=== PATIENT | male | born 1955 | race Caucasian/White ===

== ENCOUNTER 2023-10-22 08:40 | Inpatient (IN) ==
--- NOTE | 2023-09-19 08:46 | PAT Medication Instructions ---
Medication Instructions Date of Service September 19, 2023 Home Medications Fish Oil Capsule 1 cap PO QAM allopurinol 100 mg tablet 100 mg PO BID cholecalciferol (vitamin D3) 125 mcg (5,000 unit) tablet (Vitamin D3) 125 mcg PO QAM gabapentin 300 mg capsule 300 mg PO HS hydrochlorothiazide 25 mg tablet 25 mg PO QAM ibuprofen 600 mg tablet 600 mg PO QID PRN Pain lidocaine 4 % topical patch 1 patch topical BID PRN Pain losartan 25 mg tablet 25 mg PO QAM rosuvastatin 5 mg tablet (Crestor) 5 mg PO Q2D tramadol 50 mg tablet 50 mg PO BID PRN Pain Continue as directed lidocaine 4 % topical patch 1 patch topical BID PRN Pain (if needed, avoid placement near surgical site prior to surgery) rosuvastatin 5 mg tablet (Crestor) 5 mg PO Q2D ASK your surgeon for instructions ibuprofen 600 mg tablet 600 mg PO QID PRN Pain STOP taking 2 weeks before surgery (or as soon as possible if surgery is within 2 weeks) Fish Oil Capsule 1 cap PO QAM DO NOT take the morning of surgery cholecalciferol (vitamin D3) 125 mcg (5,000 unit) tablet (Vitamin D3) 125 mcg PO QAM hydrochlorothiazide 25 mg tablet 25 mg PO QAM losartan 25 mg tablet 25 mg PO QAM Take morning of surgery With a small sip of water, OTHERWISE NOTHING TO EAT OR DRINK AFTER MIDNIGHT: allopurinol 100 mg tablet 100 mg PO BID tramadol 50 mg tablet 50 mg PO BID PRN Pain (if needed) Take evening before surgery allopurinol 100 mg tablet 100 mg PO BID gabapentin 300 mg capsule 300 mg PO HS tramadol 50 mg tablet 50 mg PO BID PRN Pain (if needed) Other Notes If you have any questions please call us at [phone] or [phone] or [phone] or [phone]
--- NOTE | 2023-09-26 12:56 | Anesthesiology Consultation ---
Date of Service September 26, 2023 Assessment & Plan (1) Encounter for pre-operative examination: - upcoming PCP Dr. Lilian Isidro appointment 10/02/23 and upcoming cardiology pre-operative evaluation with Dr. Carroll's practice in [place] 10/09. PAT testing to be faxed to PCP and cardiology by patient request for continuity of care. Chart Review Chart Review: Pending: Refer to Additional Notes / Consult section and Patient seen in Pre Admission Testing Teaching & Discussion Pre-Anesthesia Teaching/Discussion Notes: Instructed NPO after midnight before surgery, except medications with 15 cc of water. Medication instructions provided according to the PAT guidelines. History Surgery Operation Date: 10/22/23 10:05 Proposed Procedures p L4-S1 Decompression Fusion Spinal Cord Monitoring - Quinn Porter DO Height/Weight Height: 5 ft 10 in Weight: 112.6 kg Allergies Allergy/AdvReac Type Severity Reaction Status Date / Time No Known Allergies Allergy Verified 09/18/23 16:16 Medications Home Medications Medication Instructions Recorded Confirmed Last Taken Fish Oil Capsule 1 cap PO QAM 09/18/23 09/18/23 Unknown allopurinol 100 mg tablet 100 mg PO BID 09/18/23 09/18/23 Unknown cholecalciferol (vitamin D3) 125 125 mcg PO QAM 09/18/23 09/18/23 Unknown mcg (5,000 unit) tablet (Vitamin D3) gabapentin 300 mg capsule 300 mg PO HS 09/18/23 09/18/23 Unknown hydrochlorothiazide 25 mg tablet 25 mg PO QAM 09/18/23 09/18/23 Unknown ibuprofen 600 mg tablet 600 mg PO QID PRN Pain 09/18/23 09/18/23 Unknown lidocaine 4 % topical patch 1 patch topical BID PRN Pain 09/18/23 09/18/23 Unknown losartan 25 mg tablet 25 mg PO QAM 09/18/23 09/18/23 Unknown rosuvastatin 5 mg tablet (Crestor) 5 mg PO Q2D 09/18/23 09/18/23 Unknown tramadol 50 mg tablet 50 mg PO BID PRN Pain 09/18/23 09/18/23 Unknown Past Medical History Medical History GERD (gastroesophageal reflux disease) infrequent, stable per pt Hx of gout last episode several yrs ago Degenerative disc disease Spinal stenosis Hypertension controlled, stable per pt; white coat HTN; followed cardiology in [place]>Dr. Carroll Patient denies h/o stroke, seizures, heart attack, heart failure, DM, blood clots/DVTs or blood transfusions. Exercise / Class Metabolic Activity II 4-5 Yardwork/Stairs/Walk up hill (denies chest discomfort or shortness of breath with 1 FOS) Past Family History Family History Other No family history of adverse response to anesthesia Past Surgical History Surgical History History of bunionectomy of both great toes H/O arthroscopy of right knee Hx of vasectomy History of colonoscopy H/O inguinal hernia repair History of tonsillectomy Past Anesthesia History No Hx of Anesthesia Complications and No Family Hx of Anesthesia Complications History of PONV No Hx of PONV and No Hx of Motion Sickness Social History Smoking Status: Never smoker Do You Dip or Chew Tobacco: Yes (-advised) Hx Alcohol Use: Yes Alcohol type: beer alcohol intake frequency: a few times a week substance use type: does not use Review of Systems Patient denies chest discomfort, shortness of breath, dyspnea on exertion, snoring, witnessed apneas, fever, chills, cough, wheezing, or palpitations. Physical Exam Vital Signs Vitals BP 171/94 left arm automatic; repeat BP left arm manual after 10-15 minutes of patient resting with feet flat on floor 160/86 (pt notes that his home reading this morning was 130/80s; notes stress being in clinical setting and drank 2 cups of coffee today) He was advised to check BP at home and follow cardiology guidelines for home readings. P 72 TEMP 97.8 SP02 96% on RA RESP 18 Physical Patient non-diaphoretic, resting comfortably in chair in no acute distress, alert and oriented, responding appropriately throughout visit Full cervical extension range of motion without pain TMD 3.5 finger breadths Mallampati Score 2 Dentition: one implant-lower left back, denies chipped or loose teeth, caps/crowns, or bridges Lungs: normal respiratory effort. Good air movement, clear throughout to auscultation, no adventitious breath sounds Cardiac: regular rate and rhythm, no murmurs noted Carotid arteries: negative bruit bilat Lab Results Anesthesia Preop Results Results Anesthesia Widget: WBC 13.18 K/ul (4.8-10.8) H 09/26/23 Hgb 14.8 g/dl (14.0-18.0) 09/26/23 Hct 42.1 % (42.0-52.0) 09/26/23 Plt 277 K/uL (130-400) 09/26/23 Na 137 mmol/L (136-145) 09/26/23 K 4.0 mmol/L (3.5-5.1) 09/26/23 Cl 105 mmol/L (98-107) 09/26/23 CO2 22 mmol/L (21-32) 09/26/23 BUN 31 mg/dl (6-23) H 09/26/23 Creat 0.85 mg/dl (0.6-1.4) 09/26/23 Glucose Level 109 mg/dl (70-99(Fasting)) H 09/26/23 PT 10.7 Seconds (9.0-12.0) 09/26/23 PTT 25 Seconds (21-31) 09/26/23 INR 1.0 (0.9-1.1) 09/26/23 Urine Color Yellow 09/26/23 Urine Appearance Clear (Clear) 09/26/23 Urine pH 6.0 (4.5-7.5) 09/26/23 Urine Specific [place] 1.014 (1.000-1.030) 09/26/23 Urine Protein Negative (Negative) 09/26/23 Urine Glucose (UA) Negative (Negative) 09/26/23 Urine Ketones Negative (Negative) 09/26/23 Urine Blood Negative (Negative) 09/26/23 Urine Nitrite Negative (Negative) 09/26/23 Urine Bilirubin Negative (Negative) 09/26/23 Urine Urobilinogen Negative (Negative) 09/26/23 Urine Leukocyte Esterase Negative (Negative) 09/26/23 Blood Type A Negative 09/26/23 Antibody Screen NEGATIVE 09/26/23 Testing Laboratory Results Surgeon's office notified of elevated WBC with left shift. Electrocardiogram Date: 09/26/23 NSR, rate 67 bpm Nonspecific intraventricular conduction block Minimal voltage criteria for LVH, may be normal variant Chest X-Ray Date: 09/26/23 No acute cardiopulmonary findings.
[~2023-10-22 08:40] MED LIST: ACETAMINOPHEN 500 MG TAB PO SCH; CeleBREX 200 MG CAP PO SCH; DEXAMETHASONE SOD INJ 4 MG/ML VIAL ONE; GABAPENTIN 300 MG CAP PO SCH; LIDOCAINE 2% 2 ML VIAL/AMP(20MG/ML) INFIL ONE; LR 15ML/HR IV SCH; LR 60ML/HR IV SCH; MIDAZOLAM HCL 1 MG/ML 2ML VIAL ONE; ONDANSETRON INJ 2 MG/ML 2 ML VIAL ONE; PROPOFOL IV EMULSION 10 MG/ML 20 ML VIAL IV ONE; ROCURONIUM BROMIDE 10 MG/ML 5 ML VIAL IV ONE; SUGAMMADEX SODIUM 200 MG/2 ML VIAL IV ONE; ceFAZolin 2000MG 2,000 MG/15 ML SYR IV SCH; fentaNYL citrate PF 100 MCG/2 ML VIAL ONE
[2023-10-22] MEDS ORDERED: ONDANSETRON INJ 2 MG/ML 2 ML VIAL IV PRN ×2 (09:54→15:27)
[2023-10-22] MEDS ORDERED: ePHEDrine sulfate 50 MG/ML AMP IV PRN (09:54)
[2023-10-22] MEDS ORDERED: NALOXONE HCL 0.4 MG/1 ML VIAL/CARP IV PRN ×2 (09:54→15:27)
[2023-10-22] MEDS ORDERED: LABETALOL HCL IV 5 MG/ML 20ML IV PRN (09:54)
[2023-10-22] MEDS ORDERED: PROMETHAZINE HCL 12.5 MG in SODIUM CHLORIDE 0.9% 50 ML IV PRN ×2 (09:54→15:27)
[2023-10-22] MEDS ORDERED: FLUMAZENIL 0.1 MG/1 ML 10 ML VIAL IV PRN (09:54)
[2023-10-22] MEDS ORDERED: ATROPINE SULFATE 0.1 MG/ML 10ML SYR IV PRN (09:54)
--- NOTE | 2023-10-22 10:27 | History & Physical Bridge Note ---
Date of Service October 22, 2023 History & Physical Bridge Note I have examined the patient, reviewed the History & Physical and in the interval since the performance of the History & Physical I have noted the following changes of clinical significance: no changes noted
--- NOTE | 2023-10-22 10:28 | History & Physical Report ---
Date of Service October 22, 2023 Assessment & Plan (1) Neurogenic claudication due to lumbar spinal stenosis: Plan: L4-S1 decompression and fusion possible L2-L4 History of Present Illness Chief Complaint: Back and bilateral leg pain Primary Care Provider: Lilian Isidro MD This is a 60-year-old male who presents with chronic persistent back and leg pain after failing course of nonoperative care is here for surgical invention. Allergies Allergy/AdvReac Type Severity Reaction Status Date / Time No Known Allergies Allergy Verified 10/22/23 09:21 Home Medications Medication Instructions Recorded Confirmed Type Fish Oil Capsule 1 cap PO QAM 09/18/23 10/22/23 History allopurinol 100 mg tablet 100 mg PO BID 09/18/23 10/22/23 History cholecalciferol (vitamin D3) 125 125 mcg PO QAM 09/18/23 10/22/23 History mcg (5,000 unit) tablet (Vitamin D3) gabapentin 300 mg capsule 300 mg PO HS 09/18/23 10/22/23 History hydrochlorothiazide 25 mg tablet 25 mg PO QAM 09/18/23 10/22/23 History ibuprofen 600 mg tablet 600 mg PO QID PRN Pain 09/18/23 10/22/23 History lidocaine 4 % topical patch 1 patch topical BID PRN Pain 09/18/23 10/22/23 Hi story losartan 25 mg tablet 25 mg PO QAM 09/18/23 10/22/23 History rosuvastatin 5 mg tablet (Crestor) 5 mg PO Q2D 09/18/23 10/22/23 History tramadol 50 mg tablet 50 mg PO BID PRN Pain 09/18/23 10/22/23 History Past Med/Surg History Medical History GERD (gastroesophageal reflux disease) infrequent, stable per pt Hx of gout last episode several yrs ago Degenerative disc disease Spinal stenosis Hypertension controlled, stable per pt; white coat HTN; followed cardiology in [place]>Dr. Carroll Surgical History History of bunionectomy of both great toes H/O arthroscopy of right knee Hx of vasectomy History of colonoscopy H/O inguinal hernia repair History of tonsillectomy Family History Other No family history of adverse response to anesthesia Social History Smoking Status: Never smoker Tobacco Type: Smokeless Tobacco (Dip or Chew) Second Hand Exposure: No; Do You Dip or Chew Tobacco: Yes (-advised); Hx Alcohol Use: Yes Alcohol type: beer Preferred Language: Chinese Rolloff Driver Required: No Beliefs That Will Affect Care: None Current Living Situation: Spouse Feels Safe at Home: Yes Safety Concerns: Feels Safe At This Time Assistive Devices: None Physical Exam Physical Exam: Patient is alert and oriented Heart regular rhythm Lungs clear Results & Data Results & Data Vital Signs (Past 12 Hours) Vital Signs Temp Pulse Resp BP Pulse Ox O2 Del Method 10/22/23 09:25 36.6 C 85 95 H 140/107 H 95 Room Air
[2023-10-22] MEDS ORDERED: BUPIVACAINE/EPINEPHRINE 0.25% 1:200,000 30 ML VIAL ONE (10:52)
[2023-10-22] MEDS ORDERED: ceFAZolin 330 MG/ML 1 GM VIAL ONE (10:52)
[2023-10-22] MEDS ORDERED: FLOSEAL HEMOSTATIC MATRIX 10ML TOP ONE (11:35)
[2023-10-22] MEDS ORDERED: PHENYLEPHRINE 100MCG/ML 10ML SYR IV ONE (12:22)
[2023-10-22] MEDS ORDERED: ROCURONIUM BROMIDE 10 MG/ML 5 ML VIAL IV ONE (12:38)
[2023-10-22] MEDS ORDERED: fentaNYL citrate PF 100 MCG/2 ML VIAL ONE (12:54)
--- NOTE | 2023-10-22 13:37 | Operative Report ---
Post Operative Report Pre & Post Diagnosis Operation Date: 10/22/23 10:25 Pre-Op Diagnosis: Neurogenic claudication due to lumbar spinal stenosis Spondylolisthesis L5-S1 Epidural lipomatosis Post-Op Diagnosis: Same I identified the patient and participated in the time-out.: Yes Procedure Operation Date: 10/22/23 10:25 Actual Procedures #1 lumbar decompression bilaterally facetectomies and foraminotomies L2-3, L3- L4, L4-5 and L5-S1. #2 posterior spinal fusion L2-S1. #3 placement of posterior segmental instrumentation L2-S1. #4 interbody fusion L4-5 L5-S1. #5 placement Spira 13 x 26 mm at L4-5 and 14 x 26 mm x 2 at L5-S1. #6 placement locally harvested morselized autograft and posterior gutters. #7 placement of Morpheus bone graft in the interbody space and infuse collagen sponge combined with Koros in the posterior lateral gutters. Surgeon Quinn Porter, DO Flute Polisher Jody Bolanos Estimated Blood Loss 800 Findings See Below The patient is 5 foot 10 weighing over 107 kg with a BMI in excess of 34. Patient's body habitus did contribute to significant technical difficulty required deeper retractors longer instruments were to perform his procedure. This at least 50% increased operative time. Specimens None Indications This is a 68-year-old male who presents problems diagnosis of failed course of nonoperative care is here for surgical invention. Description of Procedure Patient was met with identified informed consent obtained. Patient was then taken to the operative suite underwent patient placed in a prone position on the [place] table top [place] frame. All bony prominences well-padded eyes inspected to ensure no external pressure placed upon the. This point lumbar spine was prepped and draped in a sterile fashion. Sharp dissection with the assistance of Bovie cautery performed down to and exposing the lamina transverse processes of L2-L3 L4-5 and the sacral ala bilaterally. From caudal cephalad fashion complete laminectomy of L5 L4 L3 and L2 was performed including bilaterally facetectomies and foraminotomies addressing severe spinal stenosis and epidural lipomatosis. Pedicle screws then placed L2 L3-L4-L5 and S1 levels bilaterally with assistance of fluoroscopy and process cole placed. By way the transforam inal approach on the right discectomy of L5-S1 was performed endplates guided to subcortically bone and a 14 x 26 mm Spira cage with I factor tapped in position. Then proceeded to the left side L5-S1 transforaminal space completed the discectomy curetted the endplates to subcortical bleeding bone and placed a second 14 x 26 mm Spira cage with I factor into position. Then proceeded to L for L5 and by way of transforaminal approach on the right a complete discectomy performed endplates guided to subcortical mean bone and a 13 x 26 mm Spira cage with I factor tapped in position. The rods then locked in final position bilaterally. The transverse processes of L 2 L3-L4-L5 and the sacral ala burred to subcortical bleeding bone. Infuse collagen sponge combined with Koros and local autograft placed in the posterior gutters. 15 round SVEN inserted. The incision was then closed with 1 Vicryl the fascia 2-0 Vicryl subcutaneously and 4 Monocryl for final skin closure. Steri-Strip sterile dressing placed. Patient awakened taken to PACU stable condition. Please note spinal cord monitoring was utilized at the procedure no changes noted. Lastly Jody Bolanos was present at the entire surgeon while the patient positioning complex portion of the surgery and final skin closure. I attest to the content of the Intraoperative Record and any orders documented therein. Any exceptions are noted below.
--- NOTE | 2023-10-22 14:01 | Fluoroscopy Report ---
FL lumbar spine 2-3V CLINICAL HISTORY: L4-S1 DECOMP/FUSION COMPARISON STUDY: None FLUOROSCOPY TIME: 32.6 seconds FLUOROSCOPY IMAGES: 4 EXPOSURE DOSE: 27.23 mGy FINDINGS: Posterior interbody rods and screw fusion hardware is noted at what is labeled the L2-S1 le vels with L4-L5 and L5-S1 discectomy. The hardware appears intact. A surgical sponge projects over th e L1 vertebral body on the lateral view. IMPRESSION: Fluoroscopic assistance as above. ACT 112: Negative or not required by law. Electronically signed by: Austin Crane M.D. 10/22/2023 1:59 PM
[2023-10-22] MEDS: fentaNYL citrate PF 100 MCG/2 ML VIAL IV PRN ×4 (14:05→14:20)
[2023-10-22] MEDS: HYDROmorphone INJ 1 MG/ML SYRINGE IV PRN ×6 (14:24→14:49)
--- NOTE | 2023-10-22 15:13 | Anesthesiology Progress Note ---
Date of Service October 22, 2023 Anesthesia Post Procedure Vital Signs Vital Signs: Temp Pulse Resp BP Pulse Ox O2 Del Method O2 Flow Rate 10/22/23 15:00 100 H 16 116/84 95 Nasal Cannula 3 10/22/23 14:50 99 H 14 128/82 97 Nasal Cannula 3 10/22/23 14:40 98 H 12 115/82 96 Nasal Cannula 3 10/22/23 14:30 37.1 C 101 H 14 112/95 95 Nasal Cannula 3 10/22/23 14:20 108 H 14 129/72 96 Nasal Cannula 3 10/22/23 14:10 105 H 10 L 124/95 96 Oxymask 4 10/22/23 14:00 110 H 14 111/96 97 Oxymask 6 10/22/23 13:52 36.2 C L 94 H 16 112/86 92 Oxymask 8 10/22/23 09:25 36.6 C 85 95 H 140/107 H 95 Room Air Pain Intensity Lower Back: Pain Intensity: 4 Transfer of Care Handoff Completed per policy Notes Mental Status: alert / awake / arousable Patient Amnestic to Procedure: Yes Nausea / Vomiting: adequately controlled Pain: adequately controlled Airway Patency, RR, SpO2: stable & adequate BP & HR: stable & adequate Hydration State: stable & adequate Anesthetic Complications: no major complications apparent
[2023-10-22] MEDS ORDERED: oxyCODONE HCL IR 5 MG TAB (IMMEDIATE RELEASE) PO PRN (15:27)
[2023-10-22] MEDS ORDERED: METOCLOPRAMIDE HCL INJ 5 MG/ML 2 ML VIAL IV PRN (15:27)
[2023-10-22] MEDS ORDERED: HYDROmorphone INJ 0.5 MG/0.5 ML SYR IV PRN (15:27)
[2023-10-22] MEDS ORDERED: bisacodyL 10 MG SUPP PR PRN (15:27)
[2023-10-22] MEDS ORDERED: MAGNESIUM HYDROXIDE SUSP 30 ML UDC PO PRN (15:27)
[2023-10-22] MEDS ORDERED: HYDROmorphone INJ 1 MG/ML SYRINGE IV PRN (15:27)
[2023-10-22] MEDS ORDERED: DO NOT ADMINISTER PNEUMOCOCCAL VACCINE PRN (15:27)
[2023-10-22] MEDS ORDERED: ACETAMINOPHEN 1,000 MG/100 ML VIAL IV PRN (15:27)
[2023-10-22] MEDS ORDERED: diphenhydrAMINE Capsule 25 MG CAP PO PRN (15:27)
[2023-10-22] MEDS ORDERED: LORazepam 0.5 MG in SYRINGE 0.25 ML IV PRN (15:27)
[2023-10-22] MEDS ORDERED: ACETAMINOPHEN 500 MG TAB PO PRN (15:27)
[2023-10-22] MEDS ORDERED: LORazepam 0.5 MG TAB PO PRN (15:27)
[2023-10-22] MEDS ORDERED: FAMOTIDINE 20 MG TAB PO PRN (15:27)
[2023-10-22] MEDS ORDERED: ONDANSETRON 4 MG OD TAB PO PRN (15:27)
[2023-10-22] MEDS ORDERED: ALUMINUM/MAGNESIUM SUSP 30 ML UDC PO PRN (15:27)
[2023-10-22] MEDS ORDERED: DO NOT ADMINISTER FLU VACCINE PRN (15:27)
[2023-10-22] MEDS ORDERED: hydrOXYzine HCl 25 MG TAB PO PRN (15:27)
[2023-10-22] MEDS ORDERED: SOD PHOSPHATE/SOD BIPHOSPHATE ENEMA 132 ML BTL PR PRN (15:27)
[2023-10-22] MEDS: LACTATED RINGER'S 1,000 ML IV SCH ×2 (15:56→23:33)
[2023-10-22] MEDS: ROSUVASTATIN CALCIUM 5 MG TAB PO SCH (17:13)
[2023-10-22] MEDS: traMADol HCL 50 MG TABLET PO PRN (18:24)
--- NOTE | 2023-10-22 18:34 | Consultation ---
Date of Consultation October 22, 2023 Assessment & Plan (1) Neurogenic claudication due to lumbar spinal stenosis: (2) S/P spinal surgery: Post op day# 0 S/P L2-S1 decompression and fusion by Dr Porter [id number] Pain management per ortho Wound management per ortho PT/OT as appropriate DVT prophylaxis per ortho Incentive spirometry Monitor H&H for acute blood loss anemia; pre-op Hgb: 14.8 (3) Hypertension: Stable Continue losartan, HCTZ with holding parameters (4) Dyslipidemia: Continue rosuvastatin (5) Hx of gout: No current flare Continue allopurinol DVT Prophylaxis SCDs per ortho Disposition per primary service Follows with Dr Lilian Isidro for routine care Pt was seen and care coordinated with Dr Aguirre. See addendum Thank you for this consultation. We will follow the patient with you during their hospital stay. You can reach a [facility]05 via [employer] Supervising Physician Co-Signing Physician Notes I have seen and examined the patient and have discussed the case with the provider above. I agree with the assessment and plan as stated. 68-year-old man status post back surgery today. Still reports some low back pain but this is expected. SVEN drain in place. Cardiopulmonary exam is within normal limits. Patient is morbidly obese. Pain is manageable. No lower extremity symptoms. Lowry catheter is in place draining clear urine. Medication reconciliation performed, continue meds as noted above. Repeat CBC in a.m. given ESBL of 800 cc today. DO Timothy History of Present Illness Requesting Physician: Dr Porter Reason for Consultation: Post op medical management Attending Physician: Quinn Porter DO History of Present Illness Patient is 68 year old male with PMH HTN, dyslipidemia, gout, OA seen in medical consultation s/p L2-S1 decompression and fusion today by Dr Porter. Post op patient reports some low back pain. He is sitting up in bedside chair and states pain is minimal at rest currently. Last BM this morning. Has Lowry catheter in place. Ate sandwich and denies nausea or vomiting. Denies fever/chills, monika phoresis, AGUILAR, dizziness, vision changes, neck pain, CP, SOB, palpitations, cough, sore throat, otalgia, rhinorrhea, abdominal pain, paresthesias, extremity weakness, extremity edema, rashes, urinary symptoms. Allergies Allergy/AdvReac Type Severity Reaction Status Date / Time No Known Allergies Allergy Verified 10/22/23 09:21 Home Medications Medication Instructions Recorded Confirmed Type Fish Oil Capsule 1 cap PO QAM 09/18/23 10/22/23 History allopurinol 100 mg tablet 100 mg PO BID 09/18/23 10/22/23 History cholecalciferol (vitamin D3) 125 125 mcg PO QAM 09/18/23 10/22/23 History mcg (5,000 unit) tablet (Vitamin D3) gabapentin 300 mg capsule 300 mg PO HS 09/18/23 10/22/23 History hydrochlorothiazide 25 mg tablet 25 mg PO QAM 09/18/23 10/22/23 History ibuprofen 600 mg tablet 600 mg PO QID PRN Pain 09/18/23 10/22/23 History lidocaine 4 % topical patch 1 patch topical BID PRN Pain 09/18/23 10/22/23 History losartan 25 mg tablet 25 mg PO QAM 09/18/23 10/22/23 History rosuvastatin 5 mg tablet (Crestor) 5 mg PO Q2D 09/18/23 10/22/23 History tramadol 50 mg tablet 50 mg PO BID PRN Pain 09/18/23 10/22/23 History Patient History Medical History (Updated 10/22/23 @ 18:40 by Barbara Ceballos PA-C) Dyslipidemia GERD (gastroesophageal reflux disease) infrequent, stable per pt Hx of gout last episode several yrs ago Degenerative disc disease Spinal stenosis Hypertension controlled, stable per pt; white coat HTN; followed cardiology in [place]>Dr. Carroll Surgical History (Updated 10/22/23 @ 18:40 by Barbara Ceballos PA-C) History of bunionectomy of both great toes H/O arthroscopy of right knee Hx of vasectomy History of colonoscopy H/O inguinal hernia repair History of tonsillectomy Family History Other No family history of adverse response to anesthesia Social History Smoking Status: Never smoker Tobacco Type: Smokeless Tobacco (Dip or Chew) Second Hand Exposure: No; Do You Dip or Chew Tobacco: Yes (-advised); Hx Alcohol Use: Yes Alcohol type: beer Preferred Language: Palauan Basic Acoustic Analyst Required: No Beliefs That Will Affect Care: None Current Living Situation: Spouse Feels Safe at Home: Yes Safety Concerns: Feels Safe At This Time Assistive Devices: None Review of Systems Review of Systems: All systems reviewed & are unremarkable except as noted in HPI & below Physical Exam Physical Exam: General: no acute distress, sitting at bedside chair, obese Head: normocephalic, atraumatic Eyes: conjunctiva non-injected, anicteric ENT: normal inspection external ears, nose, mucous membranes moist Neck: supple, trachea midline Lungs: clear, no respiratory distress, no wheezing/rhonchi/rales CV: RRR, no murmur, no pretibial edema Abd: protuberant, normal BS, soft, non-tender Back: surgical dressing in place and dry. +SVEN drain with serosanguineous drainage Ext: no cyanosis, no calf tenderness; bilateral pedal pushes and pulls intact, sensation to light touch intact Neuro: A&O x 3, no focal deficits noted, flat affect Skin: warm, dry Results & Data Vital Signs (Past 12 Hours) Vital Signs Temp Pulse Pulse Resp BP Pulse Ox O2 Del Method 10/22/23 18:15 36.6 C 86 18 116/82 94 Room Air 10/22/23 17:05 36.3 C L 98 H 18 112/73 96 Room Air 10/22/23 16:15 36.7 C 88 16 120/78 95 Room Air 10/22/23 16:06 Nasal Cannula 10/22/23 15:45 36.8 C 92 H 18 119/83 95 Nasal Cannula 10/22/23 15:15 36.6 C 97 H 16 118/83 94 Room Air 10/22/23 15:00 100 H 16 116/84 95 Nasal Cannula 10/22/23 14:50 99 H 14 128/82 97 Nasal Cannula 10/22/23 14:40 98 H 12 115/82 96 Nasal Cannula 10/22/23 14:30 37.1 C 101 H 14 112/95 95 Nasal Cannula 10/22/23 14:20 108 H 14 129/72 96 Nasal Cannula 10/22/23 14:10 105 H 10 L 124/95 96 Oxymask 10/22/23 14:00 110 H 14 111/96 97 Oxymask 10/22/23 13:52 36.2 C L 94 H 16 112/86 92 Oxymask 10/22/23 09:25 36.6 C 85 95 H 140/107 H 95 Room Air O2 Flow Rate 10/22/23 18:15 10/22/23 17:05 10/22/23 16:15 10/22/23 16:06 2 10/22/23 15:45 2 10/22/23 15:15 10/22/23 15:00 3 10/22/23 14:50 3 10/22/23 14:40 3 10/22/23 14:30 3 10/22/23 14:20 3 10/22/23 14:10 4 10/22/23 14:00 6 10/22/23 13:52 8 10/22/23 09:25
[2023-10-22] MEDS: ceFAZolin 2000MG 2,000 MG/15 ML SYR IV SCH (19:45)
[2023-10-22] MEDS: allopurinoL 100 MG TAB PO SCH (21:06)
[2023-10-22] MEDS: GABAPENTIN 300 MG CAP PO SCH (21:07)
[2023-10-22] MEDS: DOCUSATE SODIUM/SENNA 50/8.6MG TAB PO SCH (21:09)
[2023-10-23] MEDS: ceFAZolin 2000MG 2,000 MG/15 ML SYR IV SCH (03:13)
[2023-10-23] MEDS: LACTATED RINGER'S 1,000 ML IV SCH (05:50)
[2023-10-23] MEDS: POLYETHYLENE (MIRALAX) 17 GM PACK PO SCH ×4 (05:53→23:43)
[2023-10-23] MEDS: traMADol HCL 50 MG TABLET PO PRN ×4 (06:05→20:48)
[2023-10-23 06:35] LABS: Basophils # (auto) 0.01 K/uL (0.00-0.20); Basophils % (auto) 0.1 %; Hematocrit (blood only) 32.9 % (42.0-52.0); Hemoglobin 11.4 g/dl (14.0-18.0); Immature Granulocytes # (auto) 0.07 K/uL (0.01-0.20); Immature Granulocytes % (auto) 0.6 %; Lymphocytes # (auto) 2.07 K/uL (1.20-3.40); Lymphocytes % (auto) 16.3 %; Mean Corpuscular Hgb Conc 34.7 g/dL (32.0-36.0); Mean Corpuscular Volume 89.4 fL (80.0-100.0); Mean Platelet Volume 9.5 fL (9.4-12.4); Monocytes # (auto) 0.85 K/uL (0.11-0.59); Monocytes % (auto) 6.7 %; Neutrophils # (auto) 9.67 K/uL (1.40-6.50); Neutrophils % (auto) 76.3 %; Platelet Count 270 K/uL (130-400); RDW Coefficient of Variation 13.1 % (11.5-14.5); RDW Standard Deviation 42.8 fL (36.4-46.3); Red Blood Count 3.68 M/uL (4.70-6.10); White Blood Count 12.67 K/ul (4.8-10.8)
[2023-10-23 06:50] LABS: BUN Creatinine Ratio 28.9 (10-20); Calcium 8.3 mg/dl (8.6-10.3); Creatinine Clr Calc Pharmacy 96.4 ml/min; Est GFR (African American) 101.4 ml/min; Est GFR (Non-African American) 87.5 ml/min; Potassium 4.1 mmol/L (3.5-5.1)
[2023-10-23] MEDS: hydroCHLOROthiazide 25 MG TAB PO SCH (07:48)
[2023-10-23] MEDS: LOSARTAN POTASSIUM 25 MG TAB PO SCH (07:48)
[2023-10-23] MEDS: dexAMETHasone 6 MG in SYRINGE 0 ML IV SCH (07:48)
[2023-10-23] MEDS: allopurinoL 100 MG TAB PO SCH ×2 (07:49→20:46)
--- NOTE | 2023-10-23 11:43 | Orthopedic Progress Note ---
Date of Service October 23, 2023 Assessment & Plan (1) Neurogenic claudication due to lumbar spinal stenosis: Plan: This time we will continue physical therapy monitor his SVEN operatively discharge home later this week. Admission and Anticipated Discharge Date Admission Date: October 22, 2023 Subjective Back pain controlled leg pain improved Physical Exam Physical Exam: Patient is comfortable in bed. He is tolerating physical therapy. Discussing the testing. Results & Data Vital Signs (Past 12 Hours) Vital Signs Temp Pulse Resp BP Pulse Ox O2 Del Method 10/23/23 08:00 Room Air 10/23/23 07:43 36.4 C L 83 18 137/79 95 Room Air 10/23/23 02:17 36.6 C 76 16 113/69 94 Room Air Queries Orthopedic Spine Obesity: Yes
--- NOTE | 2023-10-23 14:06 | Hospitalist Progress Note ---
Date of Service October 23, 2023 Assessment & Plan (1) Neurogenic claudication due to lumbar spinal stenosis: (2) S/P spinal surgery: Plan: Post op day# 1 S/P L2-S1 decompression and fusion by Dr Charlotte SPARKS#[id number] Pain management per ortho Wound management per ortho PT/OT as appropriate DVT prophylaxis per ortho Incentive spirometry Monitor H&H for acute blood loss anemia; pre-op Hgb: 14.8 Acute blood loss anemia: Likely perioperative blood loss complicated by dilutional anemia. Preoperative hemoglobin 14.8, postoperative 11.4. Will follow. Patient denies any headache or dizziness or chest pain or palpitation. No indication for transfusion for now. (3) Hypertension: Plan: Stable Continue losartan, HCTZ with holding parameters (4) Dyslipidemia: Plan: Continue rosuvastatin (5) Hx of gout: Plan: No current flare Continue allopurinol DVT Prophylaxis SCDs per ortho Disposition per primary service Follows with Dr Lilian Isidro for routine care Thank you for this consultation. We will follow the patient with you during their hospital stay. You can reach a member of the [facility] 12/05 via [employer] Admission and Anticipated Discharge Date Admission Date: October 22, 2023 Subjective Patient was seen and examined at bedside. Reports RLE radicular symptoms improved. Reports operative site pain under control. Reports eating okay, has not moved bowels yet, moving gas, no belly pain. Denies other review of symptoms. Physical Exam Physical Exam: General: no acute distress, lying in bed, on room air, NAD. Head: normocephalic, atraumatic Eyes: conjunctiva non-injected, anicteric ENT: normal inspection external ears, nose, mucous membranes moist Neck: supple, trachea midline Lungs: clear, no respiratory distress, no wheezing/rhonchi/rales CV: RRR, no murmur, no pretibial edema Abd: protuberant, normal BS, soft, non-tender Back: surgical dressing in place and dry. +SVEN drain with moderate serosanguineous drainage Ext: no cyanosis, no calf tenderness; bilateral pedal pushes and pulls intact, sensation to light touch intact Neuro: A&O x 3, no focal deficits noted, flat affect Skin: warm, dry Results & Data Results & Data Vital Signs (Past 12 Hours) Vital Signs Temp Pulse Resp BP Pulse Ox O2 Del Method 01/04/24 11:44 36.5 C 78 20 125/76 94 Room Air 10/23/23 08:00 Room Air 10/23/23 07:43 36.4 C L 83 18 137/79 95 Room Air 10/23/23 02:17 36.6 C 76 16 113/69 94 Room Air
[2023-10-23] MEDS: GABAPENTIN 300 MG CAP PO SCH (20:46)
[2023-10-23] MEDS: DOCUSATE SODIUM/SENNA 50/8.6MG TAB PO SCH (20:46)
[2023-10-24] MEDS: POLYETHYLENE (MIRALAX) 17 GM PACK PO SCH ×4 (05:45→23:18)
[2023-10-24] MEDS: traMADol HCL 50 MG TABLET PO PRN ×3 (05:45→21:12)
[2023-10-24 06:18] LABS: Hematocrit (blood only) 31.8 % (42.0-52.0); Hemoglobin 10.8 g/dl (14.0-18.0); Mean Corpuscular Hemoglobin 30.8 pg (25.0-34.0); Mean Corpuscular Volume 90.6 fL (80.0-100.0); Mean Platelet Volume 9.4 fL (9.4-12.4); Platelet Count 249 K/uL (130-400); RDW Coefficient of Variation 13.1 % (11.5-14.5); RDW Standard Deviation 42.8 fL (36.4-46.3); Red Blood Count 3.51 M/uL (4.70-6.10); White Blood Count 13.91 K/ul (4.8-10.8)
[2023-10-24] MEDS: dexAMETHasone 6 MG in SYRINGE 0 ML IV SCH (08:19)
[2023-10-24] MEDS: hydroCHLOROthiazide 25 MG TAB PO SCH (08:19)
[2023-10-24] MEDS: allopurinoL 100 MG TAB PO SCH ×2 (08:19→21:11)
[2023-10-24] MEDS: ROSUVASTATIN CALCIUM 5 MG TAB PO SCH (08:19)
[2023-10-24] MEDS: LOSARTAN POTASSIUM 25 MG TAB PO SCH (08:19)
--- NOTE | 2023-10-24 11:48 | Orthopedic Progress Note ---
Date of Service October 24, 2023 Assessment & Plan (1) Neurogenic claudication due to lumbar spinal stenosis: Plan: This time we will continue physical therapy monitor his SVEN output hopefully discharge home in the next few days. Admission and Anticipated Discharge Date Admission Date: October 22, 2023 Subjective Back pain controlled leg pain improved Physical Exam Physical Exam: Patient is in the chair at the bedside. Discussed when to testing. Results & Data Vital Signs (Past 12 Hours) Vital Signs Temp Pulse Resp BP Pulse Ox O2 Del Method 10/24/23 08:05 37.0 C 73 16 119/74 95 Room Air 10/24/23 08:00 Room Air Queries Orthopedic Spine Obesity: Yes
--- NOTE | 2023-10-24 13:03 | Hospitalist Progress Note ---
Date of Service October 24, 2023 Assessment & Plan (1) Neurogenic claudication due to lumbar spinal stenosis: (2) S/P spinal surgery: Plan: Post op day# 2 S/P L2-S1 decompression and fusion by Dr Charlotte SPARKS#[phone] Pain management per ortho Wound management per ortho PT/OT as appropriate DVT prophylaxis per ortho Incentive spirometry Monitor H&H for acute blood loss anemia; pre-op Hgb: 14.8 Acute blood loss anemia: Likely perioperative blood loss complicated by dilutional anemia. Preoperative hemoglobin 14.8, postoperative 11.4-->10.8. Will follow. Patient denies any headache or dizziness or chest pain or palpitation. No indication for transfusion for now. (3) Hypertension: Plan: Stable Continue losartan, HCTZ with holding parameters (4) Dyslipidemia: Plan: Continue rosuvastatin (5) Hx of gout: Plan: No current flare Continue allopurinol DVT Prophylaxis SCDs per ortho Disposition per primary service Follows with Dr Lilian Isidro for routine care Thank you for this consultation. We will follow the patient with you during their hospital stay. You can [facility] via [employer] Admission and Anticipated Discharge Date Admission Date: October 22, 2023 Subjective Patient was seen and examined at bedside. Reports RLE radicular symptoms improved. Reports operative site pain under control. Reports eating okay, has not moved bowels yet, moving gas, no belly pain. Denies other review of symptoms. Physical Exam Physical Exam: General: no acute distress, lying in bed, on room air, NAD. Head: normocephalic, atraumatic Eyes: conjunctiva non-injected, anicteric ENT: normal inspection external ears, nose, mucous membranes moist Neck: supple, trachea midline Lungs: clear, no respiratory distress, no wheezing/rhonchi/rales CV: RRR, no murmur, no pretibial edema Abd: protuberant, normal BS, soft, non-tender Back: surgical dressing in place and dry. +SVEN drain with moderate serosanguineous drainage Ext: no cyanosis, no calf tenderness; bilateral pedal pushes and pulls intact, sensation to light touch intact Neuro: A&O x 3, no focal deficits noted, flat affect Skin: warm, dry Results & Data Results & Data Vital Signs (Past 12 Hours) Vital Signs Temp Pulse Resp BP Pulse Ox O2 Del Method 10/24/23 08:05 37.0 C 73 16 119/74 95 Room Air 10/24/23 08:00 Room Air
[2023-10-24] MEDS: DOCUSATE SODIUM/SENNA 50/8.6MG TAB PO SCH (21:11)
[2023-10-24] MEDS: GABAPENTIN 300 MG CAP PO SCH (21:11)
[2023-10-25] MEDS: POLYETHYLENE (MIRALAX) 17 GM PACK PO SCH ×3 (05:01→16:47)
[2023-10-25 06:15] LABS: Hemoglobin 10.3 g/dl (14.0-18.0); Mean Corpuscular Hemoglobin 31.7 pg (25.0-34.0); Mean Corpuscular Hgb Conc 35.5 g/dL (32.0-36.0); Mean Corpuscular Volume 89.2 fL (80.0-100.0); Mean Platelet Volume 9.4 fL (9.4-12.4); Platelet Count 230 K/uL (130-400); RDW Standard Deviation 42.5 fL (36.4-46.3); Red Blood Count 3.25 M/uL (4.70-6.10); White Blood Count 12.88 K/ul (4.8-10.8)
--- NOTE | 2023-10-25 08:01 | Orthopedic Progress Note ---
Date of Service October 25, 2023 Assessment & Plan (1) Neurogenic claudication due to lumbar spinal stenosis: Plan: Jose is postoperative day 3 status post L2-S1 decompression and instrumented fusion. Will continue with pain control today. Work on aggressive bowel regimen. DVT prophylaxis in the form teds and SCDs. Maintain SVEN drain due to high output. Anticipate discharge home tomorrow. Admission and Anticipated Discharge Date Admission Date: October 22, 2023 Rebecca Morgan is postoperative day 3 status post L2-S1 decompression and instrumented fusion. He is doing well. SVEN drain output last shift was 80 cc. H&H this morning are 10.3 and 29.0 respectively. Yesterday in physical therapy ambulating a total of 500 feet. Passing flatus but no bowel movement yet. Review of Systems Review of Systems: All systems reviewed & are unremarkable except as noted in HPI & below Physical Exam Physical Exam: Alert and oriented x 3 No acute distress lumbar dressing is clean dry and intact with functioning SVEN drain Strength intact bilateral lower extremities Calf soft and nontender bilaterally Results & Data Vital Signs (Past 12 Hours) Vital Signs Temp Pulse Resp BP Pulse Ox O2 Del Method 10/24/23 20:33 36.6 C 76 20 134/75 97 Room Air Queries Orthopedic Spine Obesity: Yes
[2023-10-25] MEDS: LOSARTAN POTASSIUM 25 MG TAB PO SCH (08:55)
[2023-10-25] MEDS: hydroCHLOROthiazide 25 MG TAB PO SCH (08:55)
[2023-10-25] MEDS: allopurinoL 100 MG TAB PO SCH ×2 (08:55→20:20)
[2023-10-25] MEDS: dexAMETHasone 6 MG in SYRINGE 0 ML IV SCH (08:56)
[2023-10-25] MEDS: traMADol HCL 50 MG TABLET PO PRN ×3 (09:03→22:26)
--- NOTE | 2023-10-25 14:25 | Hospitalist Progress Note ---
Date of Service October 25, 2023 Assessment & Plan (1) Neurogenic claudication due to lumbar spinal stenosis: (2) S/P spinal surgery: Plan: S/P L2-S1 decompression and fusion by Dr Porter on October 22, 2023 EBL#[id number] Pain management per ortho Wound management per ortho PT/OT as appropriate DVT prophylaxis per ortho Incentive spirometry Monitor H&H for acute blood loss anemia; pre-op Hgb: 14.8 Acute blood loss anemia: Likely perioperative blood loss complicated by dilutional anemia. Preoperative hemoglobin 14.8, postoperative 11.4-->10.3. . Patient denies any headache or dizziness or chest pain or palpitation. No indication for transfusion for now. (3) Hypertension: Plan: Stable Continue losartan, HCTZ with holding parameters (4) Dyslipidemia: Plan: Continue rosuvastatin (5) Hx of gout: Plan: No current flare Continue allopurinol DVT Prophylaxis SCDs per ortho Disposition per primary service Follows with Dr Lilian Isidro for routine care Thank you for this consultation. We will follow the patient with you during their hospital stay. You can reach a member of the [facility]ist Team 12/05 via [employer] Admission and Anticipated Discharge Date Admission Date: October 22, 2023 Subjective Patient seen and examined at bedside. Comfortable; not in distress. He has not had any bowel movement. Ambulating in the hallways without any difficulty Denies fever, chills, chest pain, shortness of breath, abdominal pain or urinary symptoms. No significant overnight events Review of Systems Review of Systems: All systems reviewed & are unremarkable except as noted in Subjective Physical Exam Physical Exam: General: no acute distress, lying in bed, on room air, NAD. Lungs: clear, no respiratory distress, no wheezing/rhonchi/rales CV: RRR, no murmur, no pretibial edema Abd: protuberant, normal BS, soft, non-tender Back: surgical dressing in place and dry. +SVEN drain with moderate serosanguineous drainage Ext: no cyanosis, no calf tenderness; bilateral pedal pushes and pulls intact, sensation to light touch intact Neuro: A&O x 3, no focal deficits noted, flat affect Skin: warm, dry Results & Data Results & Data Vital Signs (Past 12 Hours) Vital Signs Temp Pulse Resp BP Pulse Ox O2 Del Method 10/25/23 10:13 Room Air 10/25/23 08:36 36.6 C 68 16 136/78 98 Room Air
[2023-10-25] MEDS: GABAPENTIN 300 MG CAP PO SCH (20:20)
[2023-10-25] MEDS: DOCUSATE SODIUM/SENNA 50/8.6MG TAB PO SCH (20:20)
[2023-10-26] MEDS: traMADol HCL 50 MG TABLET PO PRN ×2 (07:35→11:43)
[2023-10-26] MEDS: hydroCHLOROthiazide 25 MG TAB PO SCH (07:36)
[2023-10-26] MEDS: allopurinoL 100 MG TAB PO SCH (07:36)
[2023-10-26] MEDS: ROSUVASTATIN CALCIUM 5 MG TAB PO SCH (07:36)
[2023-10-26] MEDS: LOSARTAN POTASSIUM 25 MG TAB PO SCH (07:36)
--- NOTE | 2023-10-26 08:44 | Discharge Summary ---
Date of Service October 26, 2023 Admission HPI Per Admitting Provider This is a 60-year-old male who presents with chronic persistent back and leg pain after failing course of nonoperative care is here for surgical invention. Admission Exam (Per Admitting) Constitutional WD/WN, vitals as above Eyes normal visual carr by confrontation ENMT external ear and nose normal, oropharynx normal Neck normal visual inspection Respiratory normal respiratory effort Cardiovascular Extremities: normal capillary refill Gastrointestinal (Abdomen) Inspection/Auscultation: abdomen normal to inspection Musculoskeletal Spine: + pain with thoraco-lumbar ROM Extremities: extremities normal to inspection and strength 5/5 throughout Skin no rashes, warm and dry Neurologic normal touch/pain/proprioception and moves all extremities Psychiatric A+Ox3, euthymic affect Eye Contact: good eye contact Discharge Data Consultations 10/22/23 15:27 Consult Hospitalist Routine Procedures Performed Operation Date: 10/22/23 10:25 Actual Procedures p L2-S1 Decompression and Fusion, Spinal Cord Monitoring(Not Applicable) - Quinn Porter, Hospital Course (1) Neurogenic claudication due to lumbar spinal stenosis: Jose is postoperative day 4 status post L2-S1 decompression and instrumented fusion. He is being discharged home today. He has had a bowel movement. Pain is under control. He is AMA 625 feet in physical therapy plus the hallways. He is otherwise had an uneventful postoperative hospital course. Discharge Instructions ACTIVITY RECOMMENDATIONS: SELF CARE INSTRUCTIONS AFTER THORACIC/LUMBAR FUSIONS 1. You may walk to your tolerance. It is good exercise for your legs and back. Expect some back and intermittent leg aches and pains. 2. You may perform "counter-top" level activities (make a sandwich, angie with a project, etc.). 3. No bending or lifting of more than 10 pounds or back twisting of any nature (roll like a log when turning in bed). 4. You may ride in a car for 20-30 minutes at a time. No driving until after your first visit with your doctor. 5. Frequent changes of position and restricting sitting to 30 minutes at a time will help limit the amount of back spasms and stiffness you may experience. 6. You may discontinue the use of ambulatory aids (cane, crutches, etc.) once your strength and confidence allow. 7. You may screen printer helper the shower and let water strike your incision when you arrive home at least once daily. Do not take a tub bath, sit in a hot tub or go into a swimming pool until after your first recheck in the office. SPECIAL CARE INSTRUCTIONS: VERY IMPORTANT TO READ AND REVIEW A. Your surgical incision has been closed with a cosmetic suture under the skin that will dissolve in about 6 weeks. In 14 days, you can use a pair of clean scissors and cut the suture that is left outside of the skin at the ends of your incision. 1. The small skin tapes can be removed 7 days after surgery if they have not fallen off by that point. 2. You may keep the wound open to air as much as possible to promote healing after post-op day number 5 unless told otherwise by your doctor. 3. If you think the wound looks like it is becoming infected (redness or worsening drainage) and/or you are experiencing fever, chill or worsening back pain and muscle spasms, contact the office so that we may evaluate you as soon as possible. B. Complications are uncommon, but please contact us if you have any signs or symptoms of: 1. wound infection (fever higher than 102.5 degrees F, redness, separation of wound, drainage, or increasing pain from the incision) 2. blood clots in legs (pain, swelling, redness and warmth in legs) 3. urinary tract infection (fever higher than 102.5 degrees F, burning upon urination or increased frequency of urination) 4. nerve problems (inability to walk on your toes or heels, numbness, loss of bowel or bladder control) 5. any other symptoms that concern you C. Please call the office at if you have any concerns or questions about your operation or recovery. D. No smoking! Smoking drastically decreases the chance of a solid fusion. E. Do not take any anti-inflammatory medications (Indocin, Advil, Motrin, Aspirin, Naprosyn, etc.) as these may inhibit the chance of a solid fusion. Tylenol is okay to take for pain. MANAGING PAIN AFTER SPINAL SURGERY 1. Narcotic medication is intended for short-term use and will be provided for surgical pain. Surgical pain usually lasts for a period of 4-6 weeks. Narcotic medication includes Percocet, Vicodin, Darvocet, Tylenol #3 or Lortab. 2. Longer-term pain is more appropriately treated with non-narcotic medication such as Tylenol ES. 3. Muscle spasm is not appropriately treated with narcotics. Muscle relaxers such as Soma, Flexeril or Skelaxin can be used along with Tylenol ES. 4. Remember that we all live with some "aches and pains". This is not unusual or uncommon after an injury or as we get older. a. Back pain is expected and may include muscle spasms for 4 to 6 weeks after surgery. The pain should gradually improve. If the pain worsens for no apparent reason, please contact the office. b. Intermittent leg pain may also be experienced and should not be concerned about unless it worsens for no apparent reason. If so, please contact the office. 5. We will provide appropriate medication within the normal guidelines of their prescribed use. We will also be very cautious and aware of potential abuse and extended duration of patients' medication needs. a. Pain medications are for your comfort and to assist with sleep and rest so that the tissue can heal. They are not provided in order to return to normal activity and should not be used through the day. To do so or worsening pain at night can result from ongoing tissue damage and development of tolerance to the prescribed medicine. 6. Please allow 2-3 days to process refills. Prescriptions will not be mailed but must be picked up at the office. FOLLOW UP VISIT: Keep your scheduled follow-up appointment. Any questions, please call the office at .
--- NOTE | 2023-10-26 14:17 | Hospitalist Progress Note ---
Date of Service October 26, 2023 Assessment & Plan (1) Neurogenic claudication due to lumbar spinal stenosis: (2) S/P spinal surgery: Plan: S/P L2-S1 decompression and fusion by Dr Porter on October 22, 2023 [id number] Pain management per ortho Wound management per ortho PT/OT as appropriate DVT prophylaxis per ortho Incentive spirometry Monitor H&H for acute blood loss anemia; pre-op Hgb: 14.8 Acute blood loss anemia: Likely perioperative blood loss complicated by dilutional anemia. Preoperative hemoglobin 14.8, postoperative 11.4-->10.3. . Patient denies any headache or dizziness or chest pain or palpitation. No indication for transfusion for now. (3) Hypertension: Plan: Stable Continue losartan, HCTZ with holding parameters (4) Dyslipidemia: Plan: Continue rosuvastatin (5) Hx of gout: Plan: No current flare Continue allopurinol DVT Prophylaxis SCDs per ortho Disposition per primary service Follows with Dr Lilian Isidro for routine care Thank you for this consultation. We will follow the patient with you during their hospital stay. You can reach a member of the [facility] Hospitalist Team 12/05 via [employer] Admission and Anticipated Discharge Date Admission Date: October 22, 2023 Subjective Patient seen and examined at bedside. Comfortable; not in distress. Had a bowel movement overnight and in a.m. Denies fever, chills, chest pain, shortness of breath, abdominal pain or urinary symptoms. No significant overnight events Review of Systems Review of Systems: All systems reviewed & are unremarkable except as noted in Subjective Physical Exam Physical Exam: General: no acute distress, lying in bed, on room air, NAD. Lungs: clear, no respiratory distress, no wheezing/rhonchi/rales CV: RRR, no murmur, no pretibial edema Abd: protuberant, normal BS, soft, non-tender Back: surgical dressing in place and dry. +SVEN drain with moderate serosanguineous drainage Ext: no cyanosis, no calf tenderness; bilateral pedal pushes and pulls intact, sensation to light touch intact Neuro: A&O x 3, no focal deficits noted, flat affect Skin: warm, dry Results & Data Results & Data Vital Signs (Past 12 Hours) Vital Signs Temp Pulse Resp BP Pulse Ox O2 Del Method 10/26/23 09:06 Room Air 10/26/23 08:29 36.5 C 71 16 162/85 H 98 Room Air
== END 2023-10-26 13:03 | disposition home or self-care (01) | DRG 454 ==
LOC: ASU 08:40 → 3E 13:39